=== PATIENT | male | born 1995 | race Two or more races ===

== ENCOUNTER 2019-01-13 07:50 | Emergency (ER) | payer OTHER ==
[~2019-01-13] VITALS: Ht 170.2 cm; Wt 61.2 kg
== END 2019-01-13 08:15 | disposition home or self-care (01) ==
LOC: ER 07:50 → EDBD 07:50 → ER 08:15
DX: T63.441A Toxic effect of venom of bees, accidental (unintentional), initial encounter (principal)
CPT/HCPCS: 99282